=== PATIENT | female | born 1985 | race American Indian/Alaskan Native ===

== ENCOUNTER 2017-05-13 19:06 | Inpatient (IN) | payer MEDICAID, OTHER ==
--- NOTE | 2017-05-13 19:27 | C.PDOC ---
History Of Present Illness 31 y/o F BIBEMS for transfer to psychiatric floor for Depression with suicidal ideation. Patient denies any pain, fever, vomiting, dyspnea. Patient was medically cleared at transferring facility and was accepted for transfer by ER team prior to arrival here. Time Seen by Provider: 05/13/17 19:20 Chief Complaint (Nursing): Psychiatric Evaluation Past Medical History Family History: States: No Known Family Hx Review Of Systems Except As Marked, All Systems Reviewed And Found Negative. Constitutional: Negative for: Fever Cardiovascular: Negative for: Chest Pain Physical Exam - Physical Exam Appears: No Acute Distress Skin: Normal Color Head: Normacephalic Oral Mucosa: Moist Neck: Supple Cardiovascular: Rhythm Regular Respiratory: Normal Breath Sounds Gastrointestinal/Abdominal: Soft, No Tenderness Back: No CVA Tenderness Extremity: No Tenderness Pulses: Left Radial: Normal, Right Radial: Normal Disposition - Disposition Disposition: HOSPITALIZED Disposition Time: 19:26 Condition: STABLE Forms: [facility] (Scottish) - Clinical Impression Clinical Impression: Major depression
--- NOTE | 2017-05-14 00:41 | PCM.BM ---
<RakeshLazarus - Last Filed: 05/14/17 00:40> Treatment Plan Problems - Problems identified on initial assessmt Depression Date Initiated: 05/13/17 Time Initiated: 20:40 Assessment reference: NA Status: Active Treatment assets and liabiliti Patient Assests: adapts well, ADL independent Patient Liabilities: physical pain, financial problems, poor support system, relationship conflicts, dietary restrictions, substance abuse - Milieu Protocol Maintain good personal hygiene: daily Encourage regular showers, daily Remind patient to perform daily oral care Maintain personal safety: every shift Educate patient to report safety concerns to staff, every shift Monitor environment for contraband/sharps Medication safety: Monitor for expected outcome, potential side effects: every shift, Assess barriers to learning: every shift, Assess readiness for medication education: every shift <Jose Martin Heath - Last Filed: 05/14/17 11:10> - Diagnosis (1) Major depressive disorder, recurrent severe without psychotic features Status: Acute Interventions: 05/14/17 11:11 * Assess/adjust medications daily and /or as needed * See patient on an individual basis 7x/week to assess level of depression behaviors and stability * Discuss risks, benefits, side effects and alternatives of medications * (2) Cocaine use disorder, severe, dependence Status: Acute Interventions: 05/14/17 11:12 * Assess 7x/week regarding severity of withdrawal * Educate regarding risks, benefits, side effects and alternatives of medications * Use Motivational Interviewing for abstinence * Use CBT for relapse prevention * Medication management for withdrawal symptoms * Encourage medication assisted treatment * <Tammy Krishnan - Last Filed: 05/14/17 11:16> Family Contact Family involvement: Miguel Ángel/SO not involved - Goals for Treatment Patient goals for treatment: "I want to go to rehab." Discharge/Continuing Care - Education Needs Education Needs: Patient Medication, Patient Coping Skills, Patient Community resources - Discharge Discharge Criteria: Tolerates medication w/o severe side effects, Reduction of target symptoms Discharge to:: Substance Abuse Rehab - Treatment Team Participation Discussed with Family/SO: No Was Patient/Family/SO present at Treatment Team Meeting: Yes
[2017-05-14] MEDS: Pantoprazole 40 mg EC Tab PO SCH (09:55)
--- NOTE | 2017-05-14 11:09 | PCM.PSYCH ---
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 She reports that she and her girlfriend were arrested this past Wednesday05/11/17 for solicitation and that she was released but her girlfriend was placed in snf. She presented at [facility] last Wednesday05/07/17 and was transferred to [facility] by emergency medical services yesterday for depression with suicidal ideation. She reports that she had thoughts of killing herself but did not have a plan and did not want to go through with it. She reports two previous suicide attempts, the first in 2006 and the most recent ~3 weeks ago during which she cut the arteries and veins in her inner elbow and injected herself with her EpiPen to "thin her blood." Pt has a 4 month history of cocaine use during which she has smoked a couple of grams daily. Her last use was this past Wednesday before her arrest and she reports that a withdrawal from cocaine precipitated her SI. She also reports history of an "uncontrolled seizure disorder" and feels that her cocaine use has precipitated more frequent seizures. She smokes marijuana sporadically. She denies the use of alcohol, tobacco and other drugs. Pt currently reports SI, depression, anxiety and racing thoughts. She denies insomnia, HI, hallucinations and paranoia. Pt reports history of psychiatric hospitalizations "more times than I can count. " She denies family history of psychiatric illness but states that her mother has a history of cocaine and heroin use disorder. She is taking her medications as prescribed and has no side effects. Current Medications: Active Medications Generic Name Dose Route Start Last Admin Trade Name Freq PRN Reason Stop Dose Admin Benztropine Mesylate 1 mg 05/13/17 23:03 Cogentin PO Q6H PRN EPS SYMPTOMS Fluticasone Propionate 1 spr 05/14/17 22:00 Flonase NS HS JITENDRA Gabapentin 800 mg 05/14/17 10:00 05/14/17 09:55 Neurontin PO 800 mg TID JITENDRA Administration Hydroxyzine HCl 25 mg 05/13/17 23:34 Atarax PO Q6 PRN Agitation Lamotrigine 200 mg 05/13/17 23:00 05/14/17 09:55 Lamictal PO 200 mg BID JITENDRA Administration Montelukast Sodium 10 mg 05/13/17 23:00 05/13/17 23:19 Singulair PO 10 mg HS JITENDRA Administration Ondansetron HCl 4 mg 05/13/17 22:48 05/13/17 23:19 Zofran Tab PO 4 mg Q6H PRN Administration Nausea/Vomiting Pantoprazole Sodium 40 mg 05/14/17 10:00 05/14/17 09:55 Protonix Ec Tab PO 40 mg DAILY JITENDRA Administration Risperidone 1 mg 05/14/17 10:00 05/14/17 09:55 Risperdal Tab PO 1 mg DAILY JITENDRA Administration Risperidone 2 mg 05/13/17 23:00 05/13/17 23:19 Risperdal Tab PO 2 mg HS JITENDRA Administration Past Psychiatric History - Past Psychiatric History Previous Treatment History: Inpatient History of ETOH/Drug Use: Daily use of cocaine, sporadic use of marijuana History of Family Illness: Heroin and cocaine use disorders in her mother Pertinent Medical Hx (Current Medical&Sleep Prob, Allergies): Allergies Allergy/AdvReac Type Severity Reaction Status Date / Time diphenhydramine Allergy Verified 05/13/17 19:27 [From Benadryl] metoclopramide [From Reglan] Allergy Verified 05/13/17 19:27 Penicillins Allergy Verified 05/13/17 19:27 Gabapentin [Neurontin] 800 mg PO TID 05/13/17 Lamotrigine [Lamictal Xr] 200 mg PO Q12 05/13/17 Montelukast [Singulair] 10 mg PO DAILY 05/13/17 Pantoprazole Sodium [Protonix] 40 mg PO DAILY 05/13/17 Risperidone [Risperdal] 1 mg PO DAILY 05/13/17 Risperidone [Risperdal] 2 mg PO HS 05/13/17 Review of Systems - Neurological Neurological: UNREMARKABLE - Psychiatric Psychiatric: As Per HPI, Anhedonia, Anxiety, Depression, Difficulty Concentrating, Suicidal Ideation. absent: Abnormal Sleep Pattern, Auditory Hallucinations, Change in Appetite, Homicidal Ideation, Paranoia, Visual Hallucinations Mental Status Examination - Personal Presentation Personal Presentation: Looks stated age - Affect Affect: Broad - Motor Activity Motor Activity: Calm - Reliability in Providing Information Reliability in Providing Information: Fair - Speech Speech: Organized, Relevant, Coherent - Mood Mood: Anxious - Formal Thought Process Formal Thought Process: Circumstantial - Obsessions/Compulsions Obsessions: None Compulsions: None - Cognitive Functions Orientation: Person, Place, Situation, Time Sensorium: Alert Attention/Concentration: Attentive Abstract Thinking: [place] Judgement: Intact, as evidence by: Insight regarding need for hospitalization Memory: Recent intact, as evidence by: Ability to recall events of the day, Remote intact, as evidenced by: Abilit to recall sig. life events - Risk Risk: Suicidal, Seizure, Withdrawal - Strength & Assets Inventory Strength & Assets Inventory: Family support, Cooperative DSM 5 DX - DSM 5 DSM 5 Diagnosis: Bipolar disorder recurrent mixed severe without psychotic features Cocaine use disorder severe - Recommended/Plan of Treatment Treatment Recommendations and Plan of Treatment: Bipolar disorder recurrent mixed severe without psychotic features Support and psychoeducation given Attend groups and activities daily After care planning with SW Risperdal 1 mg PO daily Risperdal 2 mg PO HS JITENDRA Neurontin 300 mg PO TID JITENDRA Lamictal 50 mg po bid Cocaine use disorder severe Support and psychoeducation given [place] for abstinence and CBT for relapse prevention Attend groups and activities daily - Smoking Cessation Smoking Cessation Initiated: No
[2017-05-14] MEDS: Fluticasone Nasal 50 mcg/Spray NS SCH (21:58)
[2017-05-15] MEDS: Pantoprazole 40 mg EC Tab PO SCH (09:35)
--- NOTE | 2017-05-15 11:07 | PCM.PYCHPN ---
Psychiatric Progress Note - Psychiatric Progress Note Patient seen today, length of contact: 18 min Patient Chief Complaint: "I'm anxious" Problems Identified/Issues Discussed: The pt is seen, chart reviewed, case discussed with staff. The pt is compliant with medications and reports no side-effects. Symptoms are improving but needs more time to stabilize. After care discussed, support and psychoeducation given. She is a bit med-seeking and has poor insight into the risks of meds. She claims she was doing "the best" when she was on Fentanyl patch, ativan and adderall. Risks discussed. She is refusing many meds due to negative past experience or b/c she is "bipolar " Medication Change: Yes Medical Record Reviewed: Yes Mental Status Examination - Cognitive Function Orientation: Person, Place, Situation, Time Memory: Intact Attention: Poor Concentration: Poor Association: Loose Fund of Knowledge: WNL - Mood Mood: Anxious - Affect Affect: Broad - Speech Speech: Pressured - Formal Thought Process Formal Thought Process: Loosening of associations, Circumstantial - Suicidal Ideation Suicidal Ideation: No - Homicidal Ideation Homicidal Ideation: No Goal/Treatment Plan - Goal/Treatment Plan Need for Continued Stay: Discharge may exacerbated symptoms, Severe functional impairment Progress Toward Problem(s) and Goals/Treatment Plan: Continue medications Support and psychoeducation daily Attend groups and activities daily After care planning by AMMON Estimated Date of D/C: 05/21/17 - Smoking Cessation Smoking Cessation Initiated: Yes
[2017-05-15] MEDS: Fluticasone Nasal 50 mcg/Spray NS SCH (21:39)
[2017-05-15 23:17] LABS: RBC URINE < 1 /hpf (0-3); URINE BACTERIA RARE (<OCC); URINE BILIRUBIN NEGATIVE (NEGATIVE); URINE BLOOD NEGATIVE (NEGATIVE); URINE COLOR Yellow (YELLOW); URINE GLUCOSE (UA) NORMAL (Normal); URINE KETONE NEGATIVE (NEGATIVE); URINE LEUKOCYTE ESTERASE NEG Leu/uL (Negative); URINE PROTEIN NEGATIVE (NEGATIVE); URINE UROBILINOGEN NORMAL mg/dL (0.2-1.0); WBC URINE 1 /hpf (0-5)
[2017-05-16] MEDS: Pantoprazole 40 mg EC Tab PO SCH (09:38)
[2017-05-16 15:47] VITALS: O2SAT 95
[2017-05-16] MEDS: Fluticasone Nasal 50 mcg/Spray NS SCH (21:35)
--- NOTE | 2017-05-17 08:50 | PCM.PYCHPN ---
Psychiatric Progress Note - Psychiatric Progress Note Patient seen today, length of contact: 18 min Patient Chief Complaint: "I have pain in my back" Problems Identified/Issues Discussed: The pt is seen, chart reviewed, case discussed with staff. Support given, CBT and [place] used briefly No new symptoms reported, improving slowly and needs more time Still hypomanic and anxious, med-seeking but not demanding No SEs from medications, risks discussed. After care discussed Medication Change: Yes (baclofen) Medical Record Reviewed: Yes Mental Status Examination - Cognitive Function Orientation: Person, Place, Situation, Time Memory: Intact Attention: Poor Concentration: Poor Association: Loose Fund of Knowledge: WNL - Mood Mood: Anxious - Affect Affect: Broad - Speech Speech: Appropriate - Formal Thought Process Formal Thought Process: Loosening of associations, Circumstantial - Suicidal Ideation Suicidal Ideation: No - Homicidal Ideation Homicidal Ideation: No Goal/Treatment Plan - Goal/Treatment Plan Need for Continued Stay: Discharge may exacerbated symptoms, Severe functional impairment Progress Toward Problem(s) and Goals/Treatment Plan: Continue medications Support and psychoeducation daily Attend groups and activities daily After care planning by AMMON Estimated Date of D/C: 05/21/17
--- NOTE | 2017-05-17 09:55 | PCM.PYCHPN ---
Psychiatric Progress Note - Psychiatric Progress Note Patient seen today, length of contact: 16 min. Patient Chief Complaint: "I am confused." Problems Identified/Issues Discussed: Pt. is seen, chart reviewed, and case discussed with staff. Pt. reports she feels a bit confused and has trouble concentrating. She states that she needs "redirection" every time she tries to focus on something. Pt. states she had good night sleep for the past 2 days with Trazodone, although the medication makes her "head congested and drowsy." Pt. also reports to feeling anxious and talking to herself time to time. Symptoms are improving, but needs more time to stabilize. After care discussed. Pt. reports she will attend long-term rehab after discharge. Support and psychoeducation given. Medication Change: Yes (baclofen) Medical Record Reviewed: Yes Mental Status Examination - Cognitive Function Orientation: Person, Place, Situation, Time Attention: Poor Concentration: Poor Association: WNL Fund of Knowledge: WNL - Mood Mood: Anxious - Affect Affect: Broad - Speech Speech: Appropriate - Formal Thought Process Formal Thought Process: Circumstantial - Suicidal Ideation Suicidal Ideation: No - Homicidal Ideation Homicidal Ideation: No Goal/Treatment Plan - Goal/Treatment Plan Need for Continued Stay: Remain at risks for inpatient hospitalization, Severe depression anxiety, Discharge may exacerbated symptoms Progress Toward Problem(s) and Goals/Treatment Plan: Bipolar disorder recurrent mixed severe without psychotic features Support and psychoeducation given Attend groups and activities daily After care planning with SW Risperdal 1 mg PO daily Risperdal 2 mg PO HS JITENDRA Neurontin 300 mg PO TID JITENDRA Lamictal 50 mg po bid Cocaine use disorder severe Support and psychoeducation given [place] for abstinence and CBT for relapse prevention Attend groups and activities daily - Smoking Cessation Smoking Cessation Initiated: Yes
[2017-05-17] MEDS: Pantoprazole 40 mg EC Tab PO SCH (10:24)
[2017-05-17] MEDS: Fluticasone Nasal 50 mcg/Spray NS SCH (22:56)
--- NOTE | 2017-05-18 10:05 | PCM.PYCHPN ---
Psychiatric Progress Note - Psychiatric Progress Note Patient seen today, length of contact: 16 min. Patient Chief Complaint: "I am in a lot of pain." Problems Identified/Issues Discussed: Pt. is seen, chart reviewed, and case discussed with staff. Pt. reports that her "nerves are irritating," and asks if she can receive the muscle relaxant 2x/day. Pt. also reports to having anxiety and claims that her "thoughts are jumping all over the place." Symptoms are improving, but needs more time to stabilize. After care discussed. Pt. states that her paperwork has been sent to [facility] and is in processing. Support and psychoeducation given. Medication Change: Yes (baclofen) Medical Record Reviewed: Yes Mental Status Examination - Cognitive Function Orientation: Person, Place, Situation, Time Attention: Poor Concentration: Poor Association: WNL Fund of Knowledge: WNL - Mood Mood: Anxious - Affect Affect: Broad - Speech Speech: Appropriate - Formal Thought Process Formal Thought Process: Circumstantial - Suicidal Ideation Suicidal Ideation: No - Homicidal Ideation Homicidal Ideation: No Goal/Treatment Plan - Goal/Treatment Plan Need for Continued Stay: Remain at risks for inpatient hospitalization, Severe depression anxiety, Discharge may exacerbated symptoms Progress Toward Problem(s) and Goals/Treatment Plan: Bipolar disorder recurrent mixed severe without psychotic features Support and psychoeducation given Attend groups and activities daily After care planning with AMMON Risperdal 1 mg PO daily Risperdal 2 mg PO HS JITENDRA Neurontin 300 mg PO TID JITENDRA Lamictal 50 mg po bid Cocaine use disorder severe Support and psychoeducation given [place] for abstinence and CBT for relapse prevention Attend groups and activities daily Estimated Date of D/C: 05/21/17
[2017-05-18] MEDS: Pantoprazole 40 mg EC Tab PO SCH (10:15)
[2017-05-18] MEDS: Fluticasone Nasal 50 mcg/Spray NS SCH (21:34)
--- NOTE | 2017-05-19 11:21 | PCM.PYCHPN ---
Psychiatric Progress Note - Psychiatric Progress Note Patient seen today, length of contact: 16 min. Patient Chief Complaint: "I am agitated and angry." Problems Identified/Issues Discussed: Pt. is seen, chart reviewed, and case discussed with staff. Pt. reports she is agitated and angry since waking up this morning. She denies racing thoughts, but reports to having "lots of thoughts," which lead her to having cocaine cravings. Pt. says she cannot seem to "calm down." Pt. denies visual and auditory hallucinations and denies suicidal and homicidal ideation. Pt. states that she does not want Depakote because she has bad liver problems and still experiences "congested head and fatigue" with Trazodone. Symptoms are improving, but needs more time to stabilize. After care discussed. Pt. states she is still waiting on [facility] to get back to her. Medication Change: Yes (continue lamictal) Medical Record Reviewed: Yes Mental Status Examination - Cognitive Function Orientation: Person, Place, Situation, Time Attention: Poor Concentration: Poor Association: WNL Fund of Knowledge: WNL - Mood Mood: Anxious - Affect Affect: Broad - Speech Speech: Appropriate - Formal Thought Process Formal Thought Process: Circumstantial - Suicidal Ideation Suicidal Ideation: No - Homicidal Ideation Homicidal Ideation: No Goal/Treatment Plan - Goal/Treatment Plan Need for Continued Stay: Remain at risks for inpatient hospitalization, Severe depression anxiety, Discharge may exacerbated symptoms Progress Toward Problem(s) and Goals/Treatment Plan: Bipolar disorder recurrent mixed severe without psychotic features Support and psychoeducation given Attend groups and activities daily After care planning with SW Risperdal 1 mg PO daily Risperdal 2 mg PO HS JITENDRA Neurontin 300 mg PO TID JITENDRA Lamictal 50 mg po bid Cocaine use disorder severe Support and psychoeducation given [place] for abstinence and CBT for relapse prevention Attend groups and activities daily Estimated Date of D/C: 05/21/17
[2017-05-19] MEDS: Pantoprazole 40 mg EC Tab PO SCH (11:47)
[2017-05-19] MEDS: Fluticasone Nasal 50 mcg/Spray NS SCH (21:47)
--- NOTE | 2017-05-20 09:54 | PCM.PYCHPN ---
Psychiatric Progress Note - Psychiatric Progress Note Patient seen today, length of contact: 16 min. Patient Chief Complaint: "I'm having a bad day." Problems Identified/Issues Discussed: Pt. is seen, chart reviewed, and case discussed with staff. Pt. reports she did not sleep too well because she was having too many dreams. She claims she is extremely anxious about everything, especially having to deal with where she is to go after discharge. Pt. claims that thinking about going back to [facility] makes her "want to kill myself." She states that the thought of having to go to a group home "serves as the biggest trigger to my anxiety." Pt. also reports of having seizures last night, seeing "flickering lights" in her room. Pt. denies visual and auditory hallucinations. Pt. also denies suicidal and homicidal ideation. Pt. reports being helpless and hopeless about her living situation and claims she still has "lots of thoughts in my head." She denies racing thoughts, but claims she "cannnot slow my mind down." Support given, CBT and [place] used briefly. No new symptoms reported, improving slowly, and needs more time. After care discussed. Pt. advised to be more proactive in calling outpatient clinics. Medication Change: Yes (continue lamictal; d/c haldol) Medical Record Reviewed: Yes Mental Status Examination - Cognitive Function Orientation: Person, Place, Situation, Time Attention: Poor Concentration: Poor Association: WNL Fund of Knowledge: WNL - Mood Mood: Depressed, Anxious - Affect Affect: Constricted - Speech Speech: Appropriate - Formal Thought Process Formal Thought Process: Circumstantial - Suicidal Ideation Suicidal Ideation: No - Homicidal Ideation Homicidal Ideation: No Goal/Treatment Plan - Goal/Treatment Plan Need for Continued Stay: Remain at risks for inpatient hospitalization, Severe depression anxiety, Discharge may exacerbated symptoms Progress Toward Problem(s) and Goals/Treatment Plan: Bipolar disorder recurrent mixed severe without psychotic features Support and psychoeducation given Attend groups and activities daily After care planning with AMMON Risperdal 1 mg PO daily Risperdal 2 mg PO HS JITENDRA Neurontin 300 mg PO TID JITENDRA Lamictal 50 mg po bid Cocaine use disorder severe Support and psychoeducation given [place] for abstinence and CBT for relapse prevention Attend groups and activities daily Estimated Date of D/C: 05/21/17
[2017-05-20] MEDS: Pantoprazole 40 mg EC Tab PO SCH (10:00)
[2017-05-20] MEDS: Fluticasone Nasal 50 mcg/Spray NS SCH (21:42)
[2017-05-21] MEDS: Pantoprazole 40 mg EC Tab PO SCH (09:22)
--- NOTE | 2017-05-21 09:40 | PCM.BM ---
<Eva Krishnany - Last Filed: 05/21/17 09:39> Treatment Plan Problems - Problems identified on initial assessmt Depression Date Initiated: 05/13/17 Time Initiated: 20:40 Assessment reference: NA Status: Active Treatment assets and liabiliti Patient Assests: adapts well, ADL independent Patient Liabilities: physical pain, financial problems, poor support system, relationship conflicts, dietary restrictions, substance abuse - Milieu Protocol Maintain good personal hygiene: daily Encourage regular showers, daily Remind patient to perform daily oral care Maintain personal safety: every shift Educate patient to report safety concerns to staff, every shift Monitor environment for contraband/sharps Medication safety: Monitor for expected outcome, potential side effects: every shift, Assess barriers to learning: every shift, Assess readiness for medication education: every shift Milieu Narrative: Bipolar disorder recurrent mixed severe without psychotic features Support and psychoeducation given Attend groups and activities daily After care planning with SW Risperdal 1 mg PO daily Risperdal 2 mg PO HS JITENDRA Neurontin 300 mg PO TID JITENDRA Lamictal 50 mg po bid Cocaine use disorder severe Support and psychoeducation given [place] for abstinence and CBT for relapse prevention Attend groups and activities daily Family Contact Family involvement: Famliy/SO not involved - Goals for Treatment Patient goals for treatment: "I want to go to rehab." Discharge/Continuing Care - Education Needs Education Needs: Patient Medication, Patient Coping Skills, Patient Community resources - Discharge Discharge Criteria: Tolerates medication w/o severe side effects, Reduction of target symptoms Discharge to:: Substance Abuse Rehab - Treatment Team Participation Patient/Family/SO Statement: Bipolar disorder recurrent mixed severe without psychotic features Support and psychoeducation given Attend groups and activities daily After care planning with SW Risperdal 1 mg PO daily Risperdal 2 mg PO HS JITENDRA Neurontin 300 mg PO TID JITENDRA Lamictal 50 mg po bid Cocaine use disorder severe Support and psychoeducation given [place] for abstinence and CBT for relapse prevention Attend groups and activities daily Discussed with Family/SO: No Was Patient/Family/SO present at Treatment Team Meeting: Yes Treatment Plan Review Patient participation: Yes Family/SO/Caregiver participation: No - Problem Depression Time Initiated: 20:40 <Jose Martin Heath - Last Filed: 05/21/17 10:55> - Diagnosis (1) Major depressive disorder, recurrent severe without psychotic features Status: Acute Interventions: 05/21/17 10:54 * Assess/adjust medications daily and /or as needed * See patient on an individual basis 7x/week to assess level of manic behaviors and stability * Discuss risks, benefits, side effects and alternatives of medications * (2) Cocaine use disorder, severe, dependence Status: Acute Interventions: 05/21/17 10:55 \\ * Assess 7x/week regarding severity of withdrawal * Educate regarding risks, benefits, side effects and alternatives of medications * Use Motivational Interviewing for abstinence * Use CBT for relapse prevention * Medication management for withdrawal symptoms * Encourage medication assisted treatment *
--- NOTE | 2017-05-21 14:02 | PCM.PYCHPN ---
Psychiatric Progress Note - Psychiatric Progress Note Patient seen today, length of contact: 16 min. Patient Chief Complaint: "I'm tired." Problems Identified/Issues Discussed: Pt. is seen, chart reviewed, and case discussed with staff. Pt. reports she still has some pain in her neck, head, and spine, and claims half of her face is numb. She denies visual and auditory hallucinations and also denies suicidal and homicidal ideation. Pt. claims it's hard to stay positive when there is nowhere to go. As per patient, these worries are causing her to have racing thoughts at night. Pt. claims she may be "allergic" to Trazodone and says she will not take it today. Pt. also persistently asks for Haldol to help her with anxiety and requests Baclofen to be given 2x/day. She also desires to be put back on her regular dose of Lamictal. Support given, CBT and PA used briefly. No new symptoms reported, improving slowly, and needs more time. After care discussed. As per staff, pt. has not been proactive in calling for outpatient programs. Pt. reports [facility] turned her down and she is waiting for response from [facility]. Medication Change: Yes (continue haldol ) Medical Record Reviewed: Yes Mental Status Examination - Cognitive Function Orientation: Person, Place, Situation, Time Attention: Poor Concentration: Poor Association: WNL Fund of Knowledge: WNL - Mood Mood: Depressed, Anxious - Affect Affect: Constricted - Speech Speech: Appropriate - Formal Thought Process Formal Thought Process: Circumstantial - Suicidal Ideation Suicidal Ideation: No - Homicidal Ideation Homicidal Ideation: No Goal/Treatment Plan - Goal/Treatment Plan Need for Continued Stay: Remain at risks for inpatient hospitalization, Severe depression anxiety, Discharge may exacerbated symptoms Progress Toward Problem(s) and Goals/Treatment Plan: Bipolar disorder recurrent mixed severe without psychotic features Support and psychoeducation given Attend groups and activities daily After care planning with SW Risperdal 1 mg PO daily Risperdal 2 mg PO HS JITENDRA Neurontin 300 mg PO TID JITENDRA Haldol 5mg PO Q8H PRN Cocaine use disorder severe Support and psychoeducation given PA for abstinence and CBT for relapse prevention Attend groups and activities daily Estimated Date of D/C: 05/24/17
[2017-05-21] MEDS: Fluticasone Nasal 50 mcg/Spray NS SCH (21:46)
[2017-05-22] MEDS: Pantoprazole 40 mg EC Tab PO SCH (09:34)
--- NOTE | 2017-05-22 11:16 | PCM.PYCHPN ---
Psychiatric Progress Note - Psychiatric Progress Note Patient seen today, length of contact: 16 min. Patient Chief Complaint: "I'm tired." Problems Identified/Issues Discussed: Pt. is seen, chart reviewed, and case discussed with staff. Pt. reports she still has some pain in her neck, head, and spine, and claims half of her face is numb. She denies visual and auditory hallucinations and also denies suicidal and homicidal ideation. Pt. claims it's hard to stay positive when there is nowhere to go. As per patient, these worries are causing her to have racing thoughts at night. Pt. claims she may be "allergic" to Trazodone and says she will not take it today. Pt. also persistently asks for Haldol to help her with anxiety and requests Baclofen to be given 2x/day. She also desires to be put back on her regular dose of Lamictal. Support given, CBT and ME used briefly. No new symptoms reported, improving slowly, and needs more time. After care discussed. As per staff, pt. has not been proactive in calling for outpatient programs. Pt. reports [facility] turned her down and she is waiting for response from [facility]. Medication Change: Yes (continue haldol ) Medical Record Reviewed: Yes Mental Status Examination - Cognitive Function Orientation: Person, Place, Situation, Time Attention: Poor Concentration: Poor Association: WNL Fund of Knowledge: WNL - Mood Mood: Depressed, Anxious - Affect Affect: Constricted - Speech Speech: Appropriate - Formal Thought Process Formal Thought Process: Circumstantial - Suicidal Ideation Suicidal Ideation: No - Homicidal Ideation Homicidal Ideation: No Goal/Treatment Plan - Goal/Treatment Plan Need for Continued Stay: Remain at risks for inpatient hospitalization, Severe depression anxiety, Discharge may exacerbated symptoms Progress Toward Problem(s) and Goals/Treatment Plan: Bipolar disorder recurrent mixed severe without psychotic features Support and psychoeducation given Attend groups and activities daily After care planning with SW Risperdal 1 mg PO daily Risperdal 2 mg PO HS JITENDRA Neurontin 300 mg PO TID JITENDRA Haldol 5mg PO Q8H PRN Cocaine use disorder severe Support and psychoeducation given ME for abstinence and CBT for relapse prevention Attend groups and activities daily Estimated Date of D/C: 05/24/17
[2017-05-22] MEDS: Fluticasone Nasal 50 mcg/Spray NS SCH (21:57)
[2017-05-23] MEDS: Pantoprazole 40 mg EC Tab PO SCH (09:42)
--- NOTE | 2017-05-23 13:48 | PCM.PYCHPN ---
Psychiatric Progress Note - Psychiatric Progress Note Patient seen today, length of contact: 16 min. Patient Chief Complaint: "I'm tired." Problems Identified/Issues Discussed: Pt. is seen, chart reviewed, and case discussed with staff. Pt. reports she still has some pain in her neck, head, and spine, and claims half of her face is numb. She denies visual and auditory hallucinations and also denies suicidal and homicidal ideation. Pt. claims it's hard to stay positive when there is nowhere to go. As per patient, these worries are causing her to have racing thoughts at night. Pt. claims she may be "allergic" to Trazodone and says she will not take it today. Pt. also persistently asks for Haldol to help her with anxiety and requests Baclofen to be given 2x/day. She also desires to be put back on her regular dose of Lamictal. Support given, CBT and SD used briefly. No new symptoms reported, improving slowly, and needs more time. After care discussed. As per staff, pt. has not been proactive in calling for outpatient programs. Pt. reports [facility] turned her down and she is waiting for response from [facility]. Medication Change: Yes (continue haldol ) Medical Record Reviewed: Yes Mental Status Examination - Cognitive Function Orientation: Person, Place, Situation, Time Attention: Poor Concentration: Poor Association: WNL Fund of Knowledge: WNL - Mood Mood: Depressed, Anxious - Affect Affect: Constricted - Speech Speech: Appropriate - Formal Thought Process Formal Thought Process: Circumstantial - Suicidal Ideation Suicidal Ideation: No - Homicidal Ideation Homicidal Ideation: No Goal/Treatment Plan - Goal/Treatment Plan Need for Continued Stay: Remain at risks for inpatient hospitalization, Severe depression anxiety, Discharge may exacerbated symptoms Progress Toward Problem(s) and Goals/Treatment Plan: Bipolar disorder recurrent mixed severe without psychotic features Support and psychoeducation given Attend groups and activities daily After care planning with SW Risperdal 1 mg PO daily Risperdal 2 mg PO HS JITENDRA Neurontin 300 mg PO TID JITENDRA Haldol 5mg PO Q8H PRN Cocaine use disorder severe Support and psychoeducation given SD for abstinence and CBT for relapse prevention Attend groups and activities daily Estimated Date of D/C: 05/24/17
[2017-05-23] MEDS: Fluticasone Nasal 50 mcg/Spray NS SCH (21:50)
[2017-05-24] MEDS: Pantoprazole 40 mg EC Tab PO SCH (10:14)
--- NOTE | 2017-05-24 10:31 | PCM.PYCHPN ---
Psychiatric Progress Note - Psychiatric Progress Note Patient seen today, length of contact: 16 min. Patient Chief Complaint: I still have physical pain. Problems Identified/Issues Discussed: Pt. is seen, chart reviewed, and case discussed with staff. Pt. still reports to having neck and back pain, and requests Baclofen to be increased to 2x/day. Pt. claims she is anxious and agitated until she receives Haldol. She states the current medications have been working a lot better. Pt. denies suicidal and homicidal ideation and denies visual and auditory hallucinations. Pt. claims the seizures have stopped after taking Lamictal. Pt. denies racing thoughts and flight of ideas. She also denies being depressed. Support given, CBT and AR used briefly. No new symptoms reported, improving slowly, and needs more time. After care discussed. Her plan from now until discharge is to call [facility], [place], and [facility] in [place] Medication Change: Yes (increase Lamictal, Risperdal) Medical Record Reviewed: Yes Mental Status Examination - Cognitive Function Orientation: Person, Place, Situation, Time Attention: Poor Concentration: Poor Association: WNL Fund of Knowledge: WNL - Mood Mood: Depressed, Anxious - Affect Affect: Constricted - Speech Speech: Appropriate - Formal Thought Process Formal Thought Process: Circumstantial - Suicidal Ideation Suicidal Ideation: No - Homicidal Ideation Homicidal Ideation: No Goal/Treatment Plan - Goal/Treatment Plan Need for Continued Stay: Remain at risks for inpatient hospitalization, Severe depression anxiety, Discharge may exacerbated symptoms Progress Toward Problem(s) and Goals/Treatment Plan: Bipolar disorder recurrent mixed severe without psychotic features Support and psychoeducation given Attend groups and activities daily After care planning with [facility]MON Risperdal 1 mg PO daily Risperdal 3 mg PO HS JITENDRA Neurontin 300 mg PO TID JITENDRA Haldol 5mg PO Q8H PRN Cocaine use disorder severe Support and psychoeducation given AR for abstinence and CBT for relapse prevention Attend groups and activities daily Estimated Date of D/C: 05/25/17
[2017-05-24] MEDS: Fluticasone Nasal 50 mcg/Spray NS SCH (22:15)
[2017-05-25 07:22] VITALS: BP 107/72; PULSE 83; RESP 20; TEMP 98.8
--- NOTE | 2017-05-25 10:01 | PCM.PYCHDC ---
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 She reports that she and her girlfriend were arrested this past Wednesday05/11/17 for solicitation and that she was released but her girlfriend was placed in intermediate. She presented at [facility] last Wednesday05/07/17 and was transferred to [facility] by emergency medical services yesterday for depression with suicidal ideation. She reports that she had thoughts of killing herself but did not have a plan and did not want to go through with it. She reports two previous suicide attempts, the first in 2006 and the most recent ~3 weeks ago during which she cut the arteries and veins in her inner elbow and injected herself with her EpiPen to "thin her blood." Pt has a 4 month history of cocaine use during which she has smoked a couple of grams daily. Her last use was this past Wednesday before her arrest and she reports that a withdrawal from cocaine precipitated her SI. She also reports history of an "uncontrolled seizure disorder" and feels that her cocaine use has precipitated more frequent seizures. She smokes marijuana sporadically. She denies the use of alcohol, tobacco and other drugs. Pt currently reports SI, depression, anxiety and racing thoughts. She denies insomnia, HI, hallucinations and paranoia. Pt reports history of psychiatric hospitalizations "more times than I can count. " She denies family history of psychiatric illness but states that her mother has a history of cocaine and heroin use disorder. She is taking her medications as prescribed and has no side effects. Consultations:: List each consultation separately and include: 1. Reason for request. 2. Findings. 3. Follow-up Summary of Hospital Course include:: 1. Description of specific treatment plan utilized for patients during their course of treatmen. 2. Summarize the time- course for resolution of acute symptoms and/or regressed behaviors. 3. Describe issues identified and worked on during hospitalization. 4. Describe medication utilized. 5. Describe medical problems identified and treated. 6. 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 She reports that she and her girlfriend were arrested this past Wednesday05/11/17 for solicitation and that she was released but her girlfriend was placed in intermediate. She presented at [facility] last Wednesday05/07/17 and was transferred to [facility] by emergency medical services yesterday for depression with suicidal ideation. She reports that she had thoughts of killing herself but did not have a plan and did not want to go through with it. She reports two previous suicide attempts, the first in 2006 and the most recent ~3 weeks ago during which she cut the arteries and veins in her inner elbow and injected herself with her EpiPen to "thin her blood." Pt has a 4 month history of cocaine use during which she has smoked a couple of grams daily. Her last use was this past Wednesday before her arrest and she reports that a withdrawal from cocaine precipitated her SI. She also reports history of an "uncontrolled seizure disorder" and feels that her cocaine use has precipitated more frequent seizures. She smokes marijuana sporadically. She denies the use of alcohol, tobacco and other drugs. Pt currently reports SI, depression, anxiety and racing thoughts. She denies insomnia, HI, hallucinations and paranoia. Pt reports history of psychiatric hospitalizations "more times than I can count. " She denies family history of psychiatric illness but states that her mother has a history of cocaine and heroin use disorder. She is taking her medications as prescribed and has no side effects. - Diagnosis (1) Major depressive disorder, recurrent severe without psychotic features Current Visit: Yes Status: Acute (2) Cocaine use disorder, severe, dependence Current Visit: Yes Status: Acute - Final Diagnosis (DSM 5) Condition upon Discharge: STABLE DSM 5: Bipolar disorder recurrent mixed severe without psychotic features Cocaine use disorder severe Disposition: HOME/ ROUTINE Follow-up Treatment Plan: Bipolar disorder recurrent mixed severe without psychotic features Support and psychoeducation given Attend groups and activities daily After care planning with AMMON Risperdal 1 mg PO daily Risperdal 3 mg PO HS JITENDRA Neurontin 300 mg PO TID JITENDRA Haldol 5mg PO Q8H PRN Cocaine use disorder severe Support and psychoeducation given NE for abstinence and CBT for relapse prevention Attend groups and activities daily Prescriptions/Medication Reconciliation: Gabapentin [Neurontin] 600 mg PO TID #60 tab lamoTRIgine [Lamictal] 100 mg PO BID #60 tab Montelukast [Singulair] 10 mg PO HS #30 tab risperiDONE [RisperDAL Tab] 3 mg PO HS #30 tab traZODone [Desyrel] 100 mg PO HS PRN #30 tab PRN Reason: Insomnia
[2017-05-25] MEDS: Pantoprazole 40 mg EC Tab PO SCH (10:27)
== END 2017-05-25 11:15 | disposition home or self-care (01) | DRG 430 ==
LOC: C.ER 19:06 → C.5E 19:28
PROVIDERS: ADMIT Psychiatry & Neurology Psychiatry; ATTEND Psychiatry & Neurology Psychiatry
PROC: HZ2ZZZZ Detoxification Services for Substance Abuse Treatment (ICD-10-PCS; principal; 2017-05-14)
PROC: GZHZZZZ Group Psychotherapy (ICD-10-PCS; 2017-05-14)
PROC: HZ56ZZZ Individual Psychotherapy for Substance Abuse Treatment, Psychoeducation (ICD-10-PCS; 2017-05-14)
PROC: HZ59ZZZ Individual Psychotherapy for Substance Abuse Treatment, Supportive (ICD-10-PCS; 2017-05-14)
PROC: HZ52ZZZ Individual Psychotherapy for Substance Abuse Treatment, Cognitive-Behavioral (ICD-10-PCS; 2017-05-14)
DX: F31.63 Bipolar disorder, current episode mixed, severe, without psychotic features (principal); R45.851 Suicidal ideations; F14.23 Cocaine dependence with withdrawal; F12.90 Cannabis use, unspecified, uncomplicated; F17.210 Nicotine dependence, cigarettes, uncomplicated; F41.8 Other specified anxiety disorders